=== PATIENT | female | born 1955 | race Caucasian/White ===

== ENCOUNTER 2019-09-18 08:15 | Outpatient (CLI) | payer MEDICARE, OTHER, SELFPAY ==
--- NOTE | 2019-09-18 08:28 | MR_ITS ---
WS: [id number] MRI RIGHT KNEE NONCONTRAST TECHNIQUE: Axial PD, coronal PD fat sat, coronal PD, sagittal PD, and sagittal PD fat-sat images obta ined. CLINICAL INFORMATION: MEDIAL MENISCUS TEAR, RT FINDINGS: Normal anterior and posterior cruciate ligaments. Distal quadriceps and patella tendons are intact. Slightly hypertrophic patella. Small suprapatellar effusion. Moderate chondromalacia patella . Mild chronic thinning of the medial and lateral meniscus. No acute appearing medial meniscal tears. Complex tear involving the posterior horn lateral meniscus extending to the articular surface. Hypertrophic patella. Moderate chondromalacia patella. Tiny intrasubstance tear involving the distal ACL insertion. Medial and lateral collateral ligaments are intact. Moderate chondromalacia involving the medial late ral joint compartments. MR/MR knee RT wo con* [id number] IMPRESSION: 1. Anterior and posterior cruciate ligaments are intact. Tiny intrasubstance t ear involving the distal ACL insertion. 2. Complex tear involving the posterior horn lateral meniscus extending to the articular surface. Normal medial meniscus. 3. Moderate chondromalacia involving the medial and lateral joint compartments . 4. Moderate chondromalacia patella. Hypertrophic patella.
== END 2019-09-18 08:16 | disposition home or self-care (01) ==
LOC: RADWPI 08:27
PROVIDERS: Family Provider Family Medicine; PCP Family Medicine; Visit Provider Family Medicine
DX: S83.241A Other tear of medial meniscus, current injury, right knee, initial encounter (principal); X58.XXXA Exposure to other specified factors, initial encounter; M22.41 Chondromalacia patellae, right knee
CPT/HCPCS: 73721

== ENCOUNTER → 2019-10-02 09:21 | Outpatient (BNVA) | payer MEDICARE, OTHER, SELFPAY | PROVIDERS: Family Provider Family Medicine; PCP Family Medicine; Referring Provider Family Medicine; Visit Provider Orthopaedic Surgery | DX: M25.561 Pain in right knee (principal); M17.11 Unilateral primary osteoarthritis, right knee | CPT/HCPCS: 73560; 73565 ==

== ENCOUNTER 2019-10-17 11:30 | Outpatient (CLI) | payer MEDICARE, OTHER, SELFPAY ==
--- NOTE | 2019-10-17 11:37 | USCV_ITS ---
Candace Hurst Age: 64 Gender: F : 1955 Exam Date: 10/17/2019 11:32 Ordering Phys: Eduard Hogan MD ([email or web address]) Technologist: Esthela Bernal Exam Location: [facility] – [place], [place] Indication: PALP, NEAR SYNCOPE BP: / HR: 84 Rhythm: Sinus Technical Quality: Adequate MEASUREMENTS (Male / Female) Normal Values 2D ECHO LV Diastolic Diameter PLAX 4.5 cm 4.2 - 5.9 / 3.9 - 5.3 cm LV Systolic Diameter PLAX 2.8 cm LV Chamber Size 5.0 cm IVS Diastolic Thickness 1.1 cm 0.6 - 1.0 / 0.6 - 0.9 cm IVS Systolic Thickness 1.8 cm LVPW Diastolic Thickness 1.0 cm 0.6 - 1.0 / 0.6 - 0.9 cm LVPW Systolic Thickness 1.3 cm RV Chamber Size 3.2 cm LVOT Diameter 2.0 cm LV Ejection Fraction 2D Teich 69.5 % LV Ejection Fraction MOD 2C 43.7 % LV Ejection Fraction 2C AL 40.0 % LA Diameter 4.0 cm LA Width 2.8 cm LA Height 4.1 cm RA Width 2.7 cm RA Height 3.7 cm Aorta at Sinotubular Diameter 2.8 cm M-MODE LV Diastolic Diameter MM 4.3 cm 4.2 - 5.9 / 3.9 - 5.3 cm LV Systolic Diameter MM 3.1 cm LV Ejection Fraction MM Teich 55.4 % IVS Diastolic Thickness MM 1.0 cm 0.6 - 1.0 / 0.6 - 0.9 cm IVS Systolic Thickness MM 0.9 cm LVPW Diastolic Thickness MM 0.9 cm 0.6 - 1.0 / 0.6 - 0.9 cm LVPW Systolic Thickness MM 1.4 cm RV Diastolic Diameter MM 1.6 cm Aortic Annulus Diameter 3.0 cm LA Ao Ratio MM 1.3 MV E Point Septal Separation 0.6 cm DOPPLER AV Peak Velocity 118.0 cm/s LVOT Peak Velocity 76.0 cm/s AV Area Cont Eq vti 2.1 cm squared AV Area Cont Eq pk 2.1 cm squared MV Area PHT 5.5 cm squared Mitral E to A Ratio 2.1 MV E' Velocity 7.0 cm/s Mitral E to MV E' Ratio 12.0 Mitral E to LV E' Lateral Ratio 14.1 Mitral E to LV E' Septal Ratio 10.5 TR Peak Velocity 188.6 cm/s TR Peak Gradient 14.2 mmHg TR Mean Velocity 122.3 cm/s TR Mean Gradient 6.9 mmHg TR Velocity Time Integral 41.8 cm PV Peak Velocity 62.0 cm/s RV Acceleration Time 0.1 s RV Ejection Time 0.3 s RV AcT/ET 0.2 FINDINGS Left Ventricle Normal left ventricular size, systolic function and wall thickness, with no regional wall motion abnormalities. Normal left ventricular wall thickness. Normal diastolic filling pattern. Left ventricular ejection fraction is estimated at 60 %. Right Ventricle The right ventricle is normal in size and function. Right Atrium The right atrium is normal in size. Left Atrium The left atrium is normal in size. Mitral Valve Structurally normal mitral valve without significant stenosis or prolapse. There is no mitral regurgitation. Aortic Valve Structurally normal aortic valve without significant sclerosis or stenosis. There is no aortic regurgitation. Tricuspid Valve Structurally normal tricuspid valve without significant stenosis or regurgitation. Pulmonary artery systolic pressure is normal. Pulmonic Valve Structurally normal pulmonic valve without significant stenosis. There is no pulmonic regurgitation. Pericardium Normal pericardium without effusion. Aorta Normal ascending aorta dimension. CONCLUSIONS Normal transthoracic echocardiogram. There are no prior echocardiogram studies to compare. Dr. Eduard Hogan MD (Electronically Signed) Final Date: 17 October 2019 17:06 S
== END 2019-10-17 11:31 | disposition home or self-care (01) ==
LOC: RAD 11:36
PROVIDERS: Family Provider Family Medicine; PCP Family Medicine; Visit Provider Internal Medicine Cardiovascular Disease
DX: R00.2 Palpitations (principal); R55 Syncope and collapse
CPT/HCPCS: 93306

== ENCOUNTER 2020-05-02 12:02 | Outpatient (CLI) | payer MEDICARE, OTHER, SELFPAY ==
--- NOTE | 2020-05-02 12:13 | XR_ITS ---
WS: [id number] Cervical spine, 3 views, 05/02/2020 Clinical Data: BACK PAIN Comparison: None. Findings: No compression fractures are seen. There is disc space narrowing at C6-C7. There is anterio r longitudinal ligament calcification at C5-C6. There is a 0.2 cm subluxation of C4 on C5. Bilateral facet joint arthritis is present from C3 through C7. There is no prevertebral soft tissue swelling. T he odontoid is unremarkable. The soft tissues of the neck and the lung apices are normal. XR/XR cervical spine 3V* [id number] Impression: 1. Disc narrowing at C6-C7. 2. 0.2 cm subluxation of C4 on C5. 3. Bilateral facet joint arthritis. 4. Minimal calcification of the anterior longitudinal ligament at C5-C6.
--- NOTE | 2020-05-02 12:14 | XR_ITS ---
WS: [id number] Thoracic spine, 3 views, 05/02/2020 Clinical Data: BACK PAIN Comparison: None. Findings: No compression fractures are seen. The disc heights are normal. The paravertebral regions are normal. XR/XR thoracic spine 3V* [id number] Impression: Negative thoracic spine.
== END 2020-05-02 12:03 | disposition home or self-care (01) ==
PROVIDERS: PCP Family Medicine; Visit Provider Family Medicine
DX: M54.6 Pain in thoracic spine; S13.150A Subluxation of C4/C5 cervical vertebrae, initial encounter; X58.XXXA Exposure to other specified factors, initial encounter; M13.88 Other specified arthritis, other site
CPT/HCPCS: 72040; 72072

== ENCOUNTER 2020-05-08 11:03 | Outpatient (RCR) | payer MEDICARE, OTHER, SELFPAY | END 2020-05-11 23:59 | disposition home or self-care (01) | LOC: SPT 11:03 | PROVIDERS: PCP Family Medicine; Referring Provider Family Medicine; Visit Provider Family Medicine | DX: M54.6 Pain in thoracic spine (principal) | CPT/HCPCS: 97161 ==

== ENCOUNTER 2020-05-12 06:00 | Outpatient (RCR) | payer MEDICARE, OTHER, SELFPAY | END 2020-06-08 23:59 | disposition home or self-care (01) | LOC: SPT 06:00 | PROVIDERS: PCP Family Medicine; Referring Provider Family Medicine; Visit Provider Family Medicine | DX: M54.9 Dorsalgia, unspecified (principal); M54.6 Pain in thoracic spine | CPT/HCPCS: 97110; 97140 ==

== ENCOUNTER 2020-06-09 06:00 | Outpatient (RCR) | payer MEDICARE, OTHER, SELFPAY | END 2020-07-09 23:59 | disposition home or self-care (01) | LOC: SPT 06:00 | PROVIDERS: PCP Family Medicine; Referring Provider Family Medicine; Visit Provider Family Medicine | DX: M40.04 Postural kyphosis, thoracic region (principal); M48.02 Spinal stenosis, cervical region | CPT/HCPCS: 97110 ==

== ENCOUNTER 2021-11-13 10:55 | Outpatient (CLI) | payer MEDICARE, OTHER, SELFPAY ==
--- NOTE | 2021-11-13 11:01 | XR_ITS ---
WS: [id number] Cervical spine, 4 views, 11/13/2021 Clinical Data: neck pain, cervical Comparison: Cervical spine, 05/02/2020. Findings: No compression fractures are seen. Degenerative disc narrowing at C6-C7. There is 0.2 cm de la vega bluxation of C4 on C5. There is anterior longitudinal ligament calcification at C5-C6. There is bilat eral facet joint arthritis from C3 through C7. There is no prevertebral soft tissue swelling. The odo ntoid is unremarkable. The soft tissues of the neck and the lung apices are normal. XR/XR cervical spine 3V* [id number] Impression: 1. Degenerative disc narrowing at C6-C7. 2. 0.2 cm subluxation of C4 on C5. 3. Bilateral facet joint arthritis C3-C7. 4. Minimal calcification anterior longitudinal ligament C5-C6.
== END 2021-11-13 10:56 | disposition home or self-care (01) ==
LOC: RAD 10:58
PROVIDERS: PCP Family Medicine; Visit Provider Family Medicine
DX: S13.150A Subluxation of C4/C5 cervical vertebrae, initial encounter (principal); M47.812 Spondylosis without myelopathy or radiculopathy, cervical region; X58.XXXA Exposure to other specified factors, initial encounter
CPT/HCPCS: 72040

== ENCOUNTER 2021-11-17 08:56 | Outpatient (CLI) | payer MEDICARE, OTHER, SELFPAY ==
--- NOTE | 2021-11-17 09:30 | MR_ITS ---
WS: [id number] MRI CERVICAL SPINE NONCONTRAST TECHNIQUE: Sagittal T1, T2 and STIR imaging. Axial T2, gradient, and fiesta imaging. CLINICAL INFORMATION: posterior neck pain radiating down arm COMPARISON: None. FINDINGS: Straightening of the normal cervical lordosis. Cord signal is normal. Mild disc bulging C5-C6 and C6- C7. Slight anterolisthesis C4 on C5. C2-C3: Normal. C3-C4: Mild disc osteophytic ridging. Mild RIGHT greater than LEFT bony foraminal narrowing. Moderate RIGHT facet arthropathy. Spinal canal is patent. C4-C5: Slight anterolisthesis. Advanced RIGHT facet arthropathy. Moderate RIGHT and mild LEFT bony fo raminal narrowing. C5-C6: Disc osteophytic ridging. Advanced LEFT facet arthropathy. Moderate to severe LEFT and no sign ificant RIGHT foraminal narrowing. Spinal canal is patent. C6-C7: Disc osteophyte complex with endplate ridging. Moderate central canal stenosis. Moderate bilat eral bony foraminal narrowing. Mild facet arthropathy. C7-T1: Normal. Edema in the articulating LEFT C5-C6 facets with a small amount of periarticular edema compatible wi th synovitis. No drainable fluid collections. MR/MR cervical spin wo con* [id number] IMPRESSION: 1. Straightening of the normal cervical lordosis. Cord signal is normal. Sligh t anterolisthesis C4 on C5. 2. Moderate central canal stenosis C6-C7 with slight contact of the cervical c ord. 3. Moderate to severe bony foraminal narrowing RIGHT C4-C5, LEFT C5-C6, and mo derate bilateral C6-C7 LEFT greater than RIGHT. 4. Advanced facet arthropathy RIGHT C4-C5 and LEFT C5-C6. Moderate RIGHT facet arthropathy C3-C4. 5. Edema in the articulating LEFT C5-C6 facets with a small amount of periart icular edema compatible with synovitis. No drainable fluid collections.
== END 2021-11-17 08:57 | disposition home or self-care (01) ==
LOC: RAD 08:57
PROVIDERS: PCP Family Medicine; Visit Provider Clinical Nurse Specialist Adult Health
DX: M54.12 Radiculopathy, cervical region (principal); M48.02 Spinal stenosis, cervical region; M47.812 Spondylosis without myelopathy or radiculopathy, cervical region
CPT/HCPCS: 72141

== ENCOUNTER → 2021-12-01 09:16 | Outpatient (BNVA) | payer MEDICARE, OTHER, SELFPAY | PROVIDERS: PCP Family Medicine; Visit Provider Orthopaedic Surgery | DX: M47.22 Other spondylosis with radiculopathy, cervical region (principal) | CPT/HCPCS: 99204 ==

== ENCOUNTER → 2022-01-07 13:16 | Outpatient (BNVA) | payer MEDICARE, OTHER, SELFPAY | PROVIDERS: PCP Family Medicine; Visit Provider Orthopaedic Surgery | DX: M47.22 Other spondylosis with radiculopathy, cervical region (principal) | CPT/HCPCS: 72040; 99214 ==

== ENCOUNTER → 2022-02-02 13:14 | Outpatient (BNVA) | payer MEDICARE, OTHER, SELFPAY | PROVIDERS: PCP Family Medicine; Visit Provider Family Medicine | DX: Z00.00 Encounter for general adult medical examination without abnormal findings (principal); M47.22 Other spondylosis with radiculopathy, cervical region; I49.1 Atrial premature depolarization; Z13.6 Encounter for screening for cardiovascular disorders | CPT/HCPCS: 80053; 80061; 85025 ==

== ENCOUNTER 2022-02-22 12:09 | Inpatient (IN) | payer MEDICARE, OTHER, SELFPAY ==
[2022-02-16 09:07] VITALS: BMI 25.9
--- NOTE | 2022-02-16 09:49 | P.ANESASSM_ITS ---
Pre-Anesthetic Assessment Height/Weight: Height 1.65 m Weight 70.76 kg Preop Diagnosis: Cervical spondylosis with radiculopathy Operation Date: 02/22/22 07:00 Proposed Procedures p Anterior Cervical Discectomy & Fusion(Not Applicable) - Benjamín Meadows DO Familial anesthetic complications: none Was Beta Fernando taken within 24 hours: N/A Was Clonidine taken within 24 hours: N/A Social Tobacco (vapes) and No alcohol Exam alert, oriented x 3, clear to auscultation bilaterally and regular rate & rhythm Airway Submandibular: within normal limits Cervical ROM: within normal limits Mallampati: Class II Dentition: full CV/HEM Arrythmia (PACs) Musc/skel Osteoarthritis/DJD Anesthetic Plan ASA status: 2 Anesthesia: General Medications/Allergies Home Medications Medication Instructions Recorded Confirmed Last Taken Type cervical collar #1 ea 01/07/22 02/02/22 Unknown Rx triamcinolone acetonide 0.1 % 1 applic topical BID dermatitis 02/02/22 02/16/22 Unknown Rx topical ointment #80 grams Allergies Allergy/AdvReac Type Severity Reaction Status Date / Time No Known Allergies Allergy Verified 02/16/22 09:06 [facility] Anesthesia Medical History Cervical osteoarthritis Lightheadedness PAC (premature atrial contraction) Palpitations Surgical History S/P hysterectomy S/P tonsillectomy Family History Father CAD (coronary artery disease) Cancer Mother CAD (coronary artery disease) Denies family history of Diabetes Clotting disorder Dementia Hyperlipidemia Psychiatric illness Chronic kidney disease (CKD) Suicide Anesthesia complication Bleeding disorder Family history of premature coronary artery disease Lung disease Hypertension Stroke Social History Smoking and tobacco status: current some day smoker Alcohol intake: current Data Anesthesia Cardiac Studies: Echocardiogram Ultrasound 10/17/19 Holter Monitor 05/11/19
[2022-02-22] VITALS (14 sets, daily range): BP systolic 136–171; BP diastolic 60–89; PULSE 78–98; RESP 16–18; TEMP 36.1–36.9; O2SAT 92–100
--- NOTE | 2022-02-22 | XR_ITS ---
WS: [id number] Exam: XR cervical spine 3V* [id number] Date/Time of Exam: 02/22/2022 12:00 AM Reason For Exam: ACDF C4-5, C5-6, C6-7 Intraoperative C-arm images of the cervical spine in the AP and lateral projections are submitted for evaluation. There is interbody fusion with anterior plate and screw fixation from C4 to C7. The fusion is in good alignment. There are disc spacers at C4-5, C5-6 and C6-7. An endotracheal tube is noted in the airwa y. XR/XR cervical spine 3V* [id number] IMPRESSION: 1. Anterior fusion from C4 to C7 in satisfactory position.
--- NOTE | 2022-02-22 | SCC_ITS ---
Procedure done: 1. Anterior diskectomy C4/5 2. Anterior diskectomy C5/6 3. Anterior discectomy C6/7 4. Insertion of cage C4/5 5. Insertion of cage C5/6 6. Insertion of Cage C6/7 7. Instrumentation with anterior plate from C4-C7 8. Use of allograft 10 seconds of fluoroscopic guidance, for a cumulative dose of 0.6 mGy, was provided to Dr. Meadows by the radiology department. C-arm images of the cervical spine were saved for the patient's permanent record. SHANNAN
--- NOTE | 2022-02-22 08:02 | P.ANESUD_ITS ---
Pre-Anesthetic Update Pre-Anesthetic Assessment: Date of Surgery/Procedure: 02/22/22 Preop Lakisha gnosis: Cervical spondylosis with radiculopathy Proposed Procedure: Operation Date: 02/22/22 08:40 Proposed Procedures p Anterior Cervical Discectomy & Fusion(Not Applicable) - Benjamín Meadows, DO Any changes to Pre-Anesthetic Assessment?: No Last Intake: Intake Last Liquid Date 02/21/22 Last Liquid Time 20:00 Last Solid Date 02/21/22 Last Solid Time 20:00 Vitals: Temperature 97.6 F 02/22/22 07:28 Temperature Source Temporal Artery S can 02/22/22 07:28 Pulse Rate 80 02/22/22 07:28 Pulse Rhythm 02/22/22 07:42 Pulse Strength 3+ Normal 02/22/22 07:42 Respiratory Rate 16 02/22/22 07:28 Blood Pressure 150/86 02/22/22 07:28 Blood Pressure Mary n 107 02/22/22 07:28 Pulse Oximetry 97 02/22/22 07:28 Oxygen Delivery Me thod 02/22/22 07:42 Exam: Pre-Anes Outpt Exam: alert, oriented x 3, clear to auscultation bilaterally and regular rate & rhythm Cardiac Studies: Echocardiogram Ultrasound 10/17/19 Holter Monitor 05/11/19
[2022-02-22] MEDS: sodium chloride 0.9% 1,000 ML 30 ML IV (08:20)
[2022-02-22] MEDS: scopolamine 1.5 Patch 1 PATCH TRANSDERMA (08:21)
[2022-02-22] MEDS: diphenhydrAMINE 50 mg/mL SDV 1mL 12.5 MG IVP (08:21)
--- NOTE | 2022-02-22 08:24 | PM.HP ---
Providers/Chief Complaint Primary Care Provider: Oskar Martinez DO Chief Complaint: ACDF C4/5 5/6 6/7 [id number]/ History of Present Illness Candace Hurst is a 66 year old female She rates her pain a 6/10 today. With pain between her shoulders and travels into the left arm. She declined referral to pain management for injections. 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 Her pain is alleviated by rest. She has been using 800mg ibuprofen without relief.? She has also tried prednisone without relief. Review of Systems General: Reports: 10 or more systems reviewed and unremarkable except in HPI and below Const: Denies: fever(s) or chills Eyes: Denies: eye discharge ENMT: Denies: hoarseness Card: Denies: chest pain or orthopnea Resp: Denies: productive cough GI: Denies: nausea or vomiting : Denies: flank pain Musc: Reports: neck pain, extremity pain and limited range of motion Skin/Breast: Denies: changes in skin color or dry skin Neuro: Reports: numbness in extremities and lack of coordination; Denies: weakness in extremities Psych: Denies: anxiety Stephane/Lymph: Denies: easy bruising or easy bleeding All/Imm: Denies: urticaria Medications/Allergies Home Medications Medication Instructions Recorded Confirmed Last Taken Type cervical collar #1 ea 01/07/22 02/02/22 Unknown Rx triamcinolone acetonide 0.1 % 1 applic topical BID dermatitis 02/02/22 02/22/22 12/23/21 Rx topical ointment #80 grams Intraoperative Neuromonitoring #1 ea 02/17/22 Unknown Rx Bone Growth Stimulator [id number] #1 ea 02/19/22 Unknown Rx Allergies Allergy/AdvReac Type Severity Reaction Status Date / Time No Known Allergies Allergy Verified 02/16/22 09:06 PFSH Acute PFSH: Medical History Cervical osteoarthritis Lightheadedness PAC (premature atrial contraction) Palpitations Surgical History S/P hysterectomy S/P tonsillectomy Family History Father CAD (coronary artery disease) Cancer Mother CAD (coronary artery disease) Denies family history of Diabetes Clotting disorder Dementia Hyperlipidemia Psychiatric illness Chronic kidney disease (CKD) Suicide Anesthesia complication Bleeding disorder Family history of premature coronary artery disease Lung disease Hypertension Stroke Social History Smoking and tobacco status: current some day smoker Alcohol intake: current Vitals/I&O/Wt Last Vital Signs Temp 97.6 F 02/22/22 07:28 Pulse 80 02/22/22 07:28 Resp 16 02/22/22 07:28 BP 150/86 02/22/22 07:28 Pulse Ox 97 02/22/22 07:28 O2 Del Method 02/22/22 07:42 Physical Exam Narrative: GENERAL: Patient in no acute distress. CARDIAC: Regular rate and rhythm. CHEST: Normal inspiratory effort, normal respiratory rate. ABDOMEN: Soft and nontender. SKIN: Clear, warm and intact. NEURO?PSYCH: The patient is alert and oriented to person, place and time. Sensorv /SILT Motor StrengthShoulder abduction C5 5/5Wrist extension C6 5/5Elbow extension C7 5/5Hand Financial Planner C8 5/5Finger abduction T15/5 Radial/ Ulnar/ Median n intact LowerSensory (SILT)Motor StrengthHin flexion L2/3Ant/inner thigh 5/5Hip adduction L2/3 5/5Knee extension L4 Lat thigh, 5/5Toe dorsiflexion L5 5/5Ankle dorsiflexion L5/ L93Ynevfrk flexion S1 5/5 DTRBleeps 2+Triceps 2+Brachioradialis 2+Patellar 2+Achilles 2+ MUSCULOSKELETAL: [] UPPEREXTREMITIES: The patient had full active ROM in fingers, wrist, elbow, and shoulder. The patient demonstrated ability to fully flex/extend/abduct/adduct fingers, make ok sign, cross 2nd/3rd digits, extend 1st digit fully.. Radial pulse 2+, CR<2 seconds. LOWER EXTREMITIES: Pt has full, active ROM of toes, ankle, knee, and hip. Dorsalis pedis/posterior tibialis pulses 2+, CR<2 seconds. SPINE: Skin warm, dry, intact. A&P Assessment and plan (1) Cervical spondylosis with radiculopathy: C4-7 ACDF Attestations Medical Necessity Statement*: failed conservative tx Coding Level of Care Code Acute Senior Games Technician for Chg Fwd Diagnoses Cervical spondylosis with radiculopathy M47.22
[2022-02-22] MEDS: fentaNYL 50 mcg/mL INJ 2mL IVP (10:58)
--- NOTE | 2022-02-22 11:06 | P.OP_ITS ---
Operative Report Date of procedure: February 22, 2022 Pre-op diagnosis: Preop Diagnosis Cervical spondylosis with radiculopathy Post-op diagnosis: same Procedure done: 1. Anterior diskectomy C4/5 2. Anterior diskectomy C5/6 3. Anterior discectomy C6/7 4. Insertion of cage C4/5 5. Insertion of cage C5/6 6. Insertion of Cage C6/7 7. Instrumentation with anterior plate from C4-C7 8. Use of allograft Surgeon: Benjamín Meadows American Indian Studies Professor: Jayden Mesa American Indian Studies Professor: The habilitation assistant, Jayden Mesa, PAC was needed for his expertise under the microscope. He was important and necessary throughout the procedure to complete in a safe and timely manner. He assisted with patient positioning prepping and draping tissue retraction suctioning of the operative field protection of the dural sac and tissue closure Estimated blood loss (mL): 10 Procedure: 1. Anterior diskectomy C4/5 2. Anterior diskectomy C5/6 3. Anterior discectomy C6/7 4. Insertion of cage C4/5 5. Insertion of cage C5/6 6. Insertion of Cage C6/7 7. Instrumentation with anterior plate from C4-C7 8. Use of allograft The patient was taken to the operating room, where he underwent general endotracheal anesthesia without complications. He was then positioned supine on the operating table, and all areas of impingement were well padded. The arms were carefully padded and tucked at his sides. A roll was placed between the shoulder blades.. An x-ray was done to determine the appropriate level for the skin incision. The entire neck was then sterilely prepped and draped in the usual fashion. Neuromonitoring was attached prior to prepping. A transverse skin incision was made and carried down to the platysma muscle. This was then split in line with its fibers. Blunt dissection was carried down medial to the carotid sheath and lateral to the trachea and esophagus until the anterior cervical spine was visualized. A needle was placed into a disc and an x-ray was done to determine its location. The longus colli muscles were then elevated bilaterally with the electrocautery unit. Self-retaining retractors were placed deep to the longus colli muscle. Attention was brought to the C4/5 level that was confirmed on x-ray. A caspar pin was placed into the C4 vertebrae and the C5 vertebrae. The disk space was then distracted. The microscope was then brought in. A radical anterior discectomies were performed at C4/5. This included complete removal of the anterior annulus, nucleus, and posterior annulus. The posterior longitudinal ligament was removed as were the posterior osteophytes. Foraminotomies were then accomplished bilaterally. This was done using a high speed bonny, kerrison rongeurs and curretes Once all of this was accomplished, the curved currette was used to check for any residual compression. The central canal was wide open as were the foramen. A high-speed bur was used to remove the cartilaginous endplates above and below the interspace. Bleeding cancellous bone was exposed. The disc space were measured and appropriate size cage were placed sterilely onto the field. Allograft graft was packed into the cages. The cage was then placed and there was good juxtaposition against the bleeding decorticated surfaces and good distraction of each interspace. Attention was brought to the next interspace. The Bladen pins were removed. Bone wax was used to prevent any bleeding from occurring at the pin sites. Attention was brought to the C5/6 level that was confirmed on x-ray. A caspar pin was placed into the C5 vertebrae and the C6 vertebrae. The disk space was then distracted. The microscope was then brought in. A radical anterior discectomies were performed at C5/6. This included complete removal of the anterior annulus, nucleus, and posterior annulus. The posterior longitudinal ligament was removed as were the posterior osteophytes. Foraminotomies were then accomplished bilaterally. This was done using a high speed bonny, kerrison rongeurs and curretes Once all of this was accomplished, the curved currette was used to check for any residual compression. The central canal was wide open as were the foramen. A high-speed bur was used to remove the cartilaginous endplates above and below the interspace. Bleeding cancellous bone was exposed. The disc space were measured and appropriate size cage were placed sterilely onto the field. Allograft graft was packed into the cages. The cage was then placed and there was good juxtaposition against the bleeding decorticated surfaces and good distraction of each interspace. Attention was brought to the next interspace. The Bladen pins were removed. Bone wax was used to prevent any bleeding from occurring at the pin sites. Attention was brought to the C6/7 level that was confirmed on x-ray. A caspar pin was placed into the C6 vertebrae and the C7 vertebrae. The disk space was then distracted. The microscope was then brought in. A radical anterior discectomies were performed at C6/7. This included complete removal of the anterior annulus, nucleus, and posterior annulus. The posterior longitudinal ligament was removed as were the posterior osteophytes. Foraminotomies were then accomplished bilaterally. This was done using a high speed bonny, kerrison rongeurs and curretes Once all of this was accomplished, the curved currette was used to check for any residual compression. The central canal was wide open as were the foramen. A high-speed bur was used to remove the cartilaginous endplates above and below the interspace. Bleeding cancellous bone was exposed. The disc space were measured and appropriate size cage were placed sterilely onto the field. Allograft graft was packed into the cages. The cage was then placed and there was good juxtaposition against the bleeding decorticated surfaces and good distraction of each interspace. Attention was brought to the next interspace. The Bladen pins were removed. Bone wax was used to prevent any bleeding from occurring at the pin sites. The appropriate size anterior cervical locking plate was chosen and bent into gentle lordosis. Two screws were then placed into each of the vertebral bodies at []. There was excellent purchase. A final x-ray was done confirming good position of the hardware and Cages. The locking screws were then applied, also with excellent purchase. Following a final copious irrigation, there was good hemostasis and no dural leaks. The carotid pulse was strong. The wounds were then closed in layers using 2-0 Vicryl suture for the platysma muscle, 2-0 Vicryl suture for the subcutaneous tissue, and 4-0 monocryl suture in a subcuticular skin closure. Glue was placed followed by application of a sterile dressing. The drain was hooked to bulb suction. A soft collar was applied. The patient was then carefully returned to the supine position on his hospital bed where he was reversed and extubated and taken to the recovery room having tolerated the procedure well.
--- NOTE | 2022-02-22 12:02 | SUR.EXTENDED ---
11:50 PATIENT TRANSFERED TO [facility]. A+O X 3. ROM AND SENSATION IN ALL EXTREMITIES. NO DYSPNEA NOTED. BEDSIDE REPORT GIVEN.
[2022-02-22] MEDS: HYDROcodone-acetaminophen 5-325 mg Tablet PO (12:41)
[2022-02-22] MEDS: lactated ringers 1,000 ML 90 ML IV ×2 (12:42→22:59)
[2022-02-22] MEDS: ketorolac 30 mg/mL INJ IVP (13:10)
--- NOTE | 2022-02-22 13:21 | ANE.PACU2 ---
Inpatient post-anesthesia follow up: Airway intact: Yes Vital signs: Temperature 97.8 F Pulse Rate 90 Respiratory Rate 18 Blood Pressure 171/60 Pulse Oximetry 94 Oxygen Delivery Me thod Room Air Oxygen Flow Rate 8 Fraction of Inspir ed Oxygen Hydration adequate: Yes Nausea and vomiting: No Pain level: 1 Mental status: Baseline
[2022-02-22] MEDS: ceFAZolin 2,000 MG in sodium chloride 0.9% (plus) 50 ML 100 MG IV ×2 (15:25→22:58)
[2022-02-22] MEDS: docusate sodium 100 mg Capsule PO (17:28)
[2022-02-23] VITALS: BP 152/67; PULSE 76; RESP 17; TEMP 37; O2SAT 94
[2022-02-23] MEDS: ondansetron 2 mg/ML SDV 2 mL 4 MG IVP (02:33)
[2022-02-23 04:00] VITALS: BP 126/63; PULSE 89; RESP 16; TEMP 37.2; O2SAT 95
[2022-02-23] MEDS: ceFAZolin 2,000 MG in sodium chloride 0.9% (plus) 50 ML 100 MG IV (06:24)
--- NOTE | 2022-02-23 06:59 | PM.PN ---
Subjective Subjective: POD 1 Patient resting comfortably. Reports sinus drainage this morning but denies any neck pain, shortness of breath, headaches. Denies any arm pain. Vitals/I&O/Wt Last Vital Signs Temp 99.0 F 02/23/22 04:00 Pulse 89 02/23/22 04:00 Resp 16 02/23/22 04:00 BP 126/63 02/23/22 04:00 Pulse Ox 95 02/23/22 04:00 O2 Del Method 02/23/22 04:00 O2 Flow Rate 8 02/22/22 10:40 02/22/22 02/22/22 02/23/22 14:59 22:59 06:59 Intake Total 1700 / 1700 1335.5 / 3035.5 50 / 3085.5 Output Total 50 / 50 200 / 250 Balance 1650 / 1650 1135.5 / 2785.5 50 / 2835.5 Physical Exam Narrative: Patient is alert and oriented x3 with a good general appearance normal mood and affect. Nontender with palpation about the incisional site. Incision appears to be clean and dry without signs of erythema or drainage. No signs of infection. Good motor strength throughout both upper extremities. Appears to fire in all motor groups with 5/5 strength. Hands are warm good cap refill in all digits. Normal sensation to light touch in all dermatomal areas. Urinary Catheter Management: Baker: Cath Placed During This Visit: yes Urinary Catheter Date of Insertion: 02/22/22 Urinary Catheter Time of Insertion: 09:00 A&P Assessment and plan (1) Status post cervical spinal fusion: Discussed with patient to be cautious with overhead lifting nothing more than 10 pounds. She will continue the [place] J collar we will see her back in the office in 1 week's time will discharge home this morning. Encouraged incentive spirometry for pulmonary toilet. We will place her on tramadol 50 mg 1 tablet every 4-6 hours as needed pain. She will call if she is having problems. 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
[2022-02-23 07:44] VITALS: BP 149/75; PULSE 84; RESP 18; TEMP 37.1; O2SAT 90
[2022-02-23] MEDS: docusate sodium 100 mg Capsule PO (09:36)
[2022-02-23] MEDS: HYDROcodone-acetaminophen 5-325 mg Tablet PO (09:36)
--- NOTE | 2022-02-23 12:26 | PC.CHAP ---
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 visit [] Patient/Family/Request visit [] Outpatient visit [] Follow-up visit [] Physician referral [] Code/Alert [x] Routine visit [] Staff referral [] Actively dying [] Patient sleeping [x] Family support [] [] Out of room [] Palliative care [] [] Receiving care in room [] Pre-surgical visit [] Trauma [] Long length of stay [] ICU visit [] Other: Relational/Emotional Strength [] Patient feels connected with others/family/visitors/staff [] Distress [] Loneliness/isolation [] Abandonment Spirituality of Patient [x] Person of Phuong [] Attends Religious of their [place] [x] Believes in Prayer [] Reads Bible or Orthodox materials [] There are Spiritual issues to be addressed Obstetrician Interventions [x] Prayer [] Active listening [] Non-anxious presence [] Spiritual/emotional support [] Crisis/trauma care [] Spiritual counseling [] Bereavement support [] Provided bereavement packet [] Provided Bible/devotional materials [] Provided toy/stuffed animal, coloring book to patient or family member [] Provided Communion [] Anointing/[place] [] Salvation [x] Completed spiritual assessment [] Other: Impact on Illness or Injury [] Angry [] Fearful [] Anxious [] Often cries [] Exhaustion [] Unable to work [] Unable to attend jew [] Unable to walk/stand [] Unable to read [] Unable to drive [] Unable to eat/drink [] Unable to sleep [] Unable to be with family [] Patient intubated [] Other: Summary Time spent with patient 15 min
[2022-02-23 12:45] VITALS: BP 149/75; PULSE 84; RESP 18; TEMP 37.1; O2SAT 90
--- NOTE | 2022-02-24 14:18 | PM.DCS ---
Discharge Providers Date of Admission: 02/22/22 12:09 Date of Discharge: February 23, 2022 Attending Provider at Admission: Benjamín Meadows DO Attending Provider at Discharge: Benjamín Meadows DO Primary Care Provider: Oskar Martinez DO Diagnoses at Discharge Discharge Diagnosis (1) Status post cervical spinal fusion: Status: Acute Reason for Visit Reason for Visit: ACDF C4/5 5/6 6/7 [id number]/ Hospital Course Hospital Course uneventful Physical Exam Urinary Catheter Management: Baker: Cath Placed During This Visit: yes Urinary Catheter Date of Insertion: 02/22/22 Urinary Catheter Time of Insertion: 09:00 Discharge Data Studies Completed and Pending Completed Studies During Hospitalization Category Date Time Status XR cervical spine 3V* [id number] Routine Exams 02/22/22 Completed Radiology Impressions Cervical Spine X-Ray 02/22/22 00:00 IMPRESSION: 1. Anterior fusion from C4 to C7 in satisfactory position. Laboratory Results Blood Type A Positive 02/22/22 07:55 Rho(D) Type Positive 02/22/22 07:55 Antibody Screen Negative 02/22/22 07:55 Vitals Last Vital Signs Temp 98.7 F 02/23/22 12:45 Pulse 84 02/23/22 12:45 Resp 18 02/23/22 12:45 BP 149/75 02/23/22 12:45 Pulse Ox 90 02/23/22 12:45 O2 Del Method 02/23/22 07:44 O2 Flow Rate 8 02/22/22 10:40 Discharge Plan Discharge Patient Disposition: Home Condition: Stable Prescriptions: New tramadol 50 mg tablet 50 mg PO Q4H PRN (Reason: post op pain) Qty: 30 0RF Continued (DME) cervical collar See Rx Instructions .Route .MEDSUPPLY Qty: 1 0RF Rx Instructions: As directed triamcinolone acetonide 0.1 % ointment 1 applic topical BID Qty: 80 1RF (DME) Intraoperative Neuromonitoring See Rx Instructions .Route .MEDSUPPLY Qty: 1 0RF Rx Instructions: As directed (DME) Bone Growth Stimulator [id number] See Rx Instructions .Route .MEDSUPPLY Qty: 1 0RF Rx Instructions: As directed Discharge Orders: Discharge Order (Routine); Ordered 02/23/22 Ordered By: Jayden Holtorf Referrals: Benjamín Meadows DO [Physician] - 03/02/22 3:15 pm Discharge Diet: Advance as tolerated Discharge Activity: Limit activity as instructed Patient Instructions: Tramadol (By mouth), Anterior Posterior Spinal Fusion (DC), Opioid Safety Activity Restrictions/Additional Instructions: Thank you for choosing [facility] for your care! The following is a list of instructions, from your provider, to follow upon your discharge to ensure you have the optimal recovery from your recent injury or surgery. Anterior Cervical Discectomy and Fusion: What to Expect at Home Your Recovery Follow-up care is a guardado part of your treatment and safety. Be sure to make and go to all appointments, and call your doctor if you are having problems. If you do not already have a follow-up appointment made, call office in the next 1-3 days to make follow up appointment for 1 weeks at [phone]. It is also a good idea to know your test results and keep a list of the medicines you take. You can expect your neck to feel stiff or sore after surgery. This should improve in the weeks after surgery. But it may take 4 to 6 months for you to get better completely. You may have trouble sitting or standing in one position for very long and may need pain medicine in the weeks after your surgery. It may take 4 to 6 weeks to get back to your usual activities, but it may depend on what kind of surgery you had. Your throat will feel sore and it may be difficult to swallow for the first 3 days after your surgery. As long as you can get liquids down without difficulty, this should slowly improve, otherwise call our office or seek medical attention if it becomes increasingly difficult to get anything down including liquids. Avoid hot liquids for first 3-5 days. Soothing foods/liquids such as jello, pudding, and luke warm soups are recommended until swallowing improves. Staying elevated will also help, it's advised you keep propped up at while sleeping to help reduce the swelling. You may use an ice pack directly on your incision or around it on the front of your neck, using a cloth to protect your skin; and a heating pad to the back of your neck as needed. Do not use over the counter anti-inflammatory medications (Ibuprofen, Motrin, Aleve, Advil, etc) Taking these meds after having a fusion can delay fusion rates, we recommend you avoid them for the first 3 months after your surgery[address] Dr. Meadows may advise you to work with a physical therapist to strengthen the muscles around your neck and back - this will be discussed at your follow - up appointments. The pain or numbness you were having in your arms before surgery should get better or go away completely. This care sheet gives you a general idea about how long it will take for you to recover. But each person recovers at a different pace. Follow the steps below to get better as quickly as possible. How can you care for yourself at home? Activity ? Rest when you feel tired. Getting enough sleep will help you recover. ? Try to walk each day. Start by walking a little more than you did the day before. Bit by bit, increase the amount you walk. Walking boosts blood flow and helps prevent pneumonia and constipation. Walking may also decrease your muscle soreness after surgery. ? No lifting anything that is more that 5 pounds. This may include heavy grocery bags and milk containers, a heavy briefcase or backpack, cat litter or dog food bags, a child, or a vacuum telephone cleaner. ? Avoid strenuous activities, such as bicycle riding, jogging, weightlifting, or aerobic exercise, until your doctor says it is okay. ? Do not drive until your follow-up visit after your surgery, or until your doctor says it isokay. ? Avoid taking long car trips for 2 to 4 weeks after surgery. Your neck may become tired and painful from sitting too long in one position. ? You will probably need to take 4 to 6 weeks off from work. It depends on the type of work you do and how you feel. ? You may have sex as soon as you feel able, but avoid positions that put stress on your neck or cause pain. Diet ? You can eat your normal diet. If your stomach is upset, try bland, low-fat foods like plain rice, broiled chicken, toast, and yogurt ? Drink plenty of fluids. If you have kidney, heart, or liver disease and have to limit fluids, talk with your doctor before you increase the amount of fluids you drink. ? You may notice that your bowel movements are not regular right after your surgery. This is common. Try to avoid constipation and straining with bowel movements. You may want to take a fiber supplement every day. If you have not had a bowel movement after a couple of days, ask your doctor about taking a mild laxative. Medicines ? Take pain medicines exactly as directed. 1. If Dr. Meadows gave you a prescription medicine for pain, take lt as prescribed. 2. Do not take two or more pain medicines at the same time unless the doctor told you to. Many pain medicines have acetaminophen, which is Tylenol. Too much acetaminophen {Tylenol) can be harmful. 3. If you think your pain pill is making you sick to your stomach: 4. Take your pills after meals (unless your doctor has told you not to). 5. Ask your Dr. for a different pain pill. Incisioncare ? Remove your dressing 48 hours after your surgery. Ok to shower and get the incision wet. Do not overtly wash your incision. When done, pad dry, leave open to air thereafter. Avoid creams and ointments directly on your incision. ? Your sutures in the incision will dissolve and fall out on their own. ? Keep the area clean and dry. You may cover it with a gauze bandage if it weeps or rubs against clothing; if you choose to do this, change the dressing everyday. Other instructions ? Use a heating pad, hot water bottle, or gentle massage on your back to reduce stiffness. Avoid putting heat on your incision When should you call for help? ? Call 911 anytime you think you may need emergency care. For example, call if: ? You pass out (lose consciousness). ? You have sudden chest pain and shortness of breath, or you cough upblood. ? You cannot swallow. ? You have severe pain in your neck or back. ? Call your Dr. or seek immediate medical care if: ? You have pain that does not get better after you take pain pills. ? You have loose stitches, or your incision comes open. ? You have blood or fluid draining from the incision. ? You have signs of infection, such as: 1. Increased pain, swelling, warmth, or redness. 2. Red streaks leading from the site. 3. Pus draining from the site. 4. Swollen lymph nodes in your neck or armpits. 5. A fever. ? You have severe pain in your arms. ? You have new or increased weakness or numbness in your arms. ? Watch closely for any changes in your health, and be sure to contact your doctor if: ? You do not have a bowel movement after taking a laxative. Discharge Attestations Time Spent in Discharge Care*: less than 30 min Quality Metrics Clinical Quality Measures [ No reported AMI, CVA or VTE this stay] Coding Level of Care Code Acute Chg FW DC note Diagnoses Status post cervical spinal fusion Z98.1
== END 2022-02-23 11:50 | disposition home or self-care (01) | DRG 473 ==
LOC: MEDSURG 12:09
PROVIDERS: Admitting Provider Orthopaedic Surgery; PCP Family Medicine; Visit Provider Orthopaedic Surgery
PROC: 0RB30ZZ Excision of Cervical Vertebral Disc, Open Approach (ICD-10-PCS; CPT 22551; principal; 2022-02-22 08:40)
DX: M47.22 Other spondylosis with radiculopathy, cervical region (principal); F17.200 Nicotine dependence, unspecified, uncomplicated
CPT/HCPCS: 51702; 72040; 76000; 86850; 86900; 97110; C1713; C9359; J0690; J1100; J1200; J1885; J2250; J2405; J2704; J2710; J3010; J3490; J7030; J7120

== ENCOUNTER → 2022-03-02 14:48 | Outpatient (BNVA) | payer MEDICARE, OTHER, SELFPAY | PROVIDERS: PCP Family Medicine; Visit Provider Orthopaedic Surgery | DX: Z47.89 Encounter for other orthopedic aftercare (principal) | CPT/HCPCS: 99024 ==

== ENCOUNTER → 2022-03-11 13:13 | Outpatient (BNVA) | payer MEDICARE, OTHER, SELFPAY | PROVIDERS: PCP Family Medicine; Visit Provider Physician Assistant | DX: Z47.89 Encounter for other orthopedic aftercare (principal); Z98.1 Arthrodesis status | CPT/HCPCS: 72040; 99024 ==

== ENCOUNTER → 2022-04-08 14:03 | Outpatient (BNVA) | payer MEDICARE, OTHER, SELFPAY | PROVIDERS: PCP Family Medicine; Visit Provider Physician Assistant | DX: Z98.1 Arthrodesis status (principal) | CPT/HCPCS: 36415; 72040; 85025; 99024 ==

== ENCOUNTER → 2022-04-13 09:00 | Outpatient (BNVA) | payer MEDICARE, OTHER, SELFPAY | PROVIDERS: PCP Family Medicine; Visit Provider Clinical Nurse Specialist Adult Health | DX: R42 Dizziness and giddiness (principal); R00.2 Palpitations; I49.1 Atrial premature depolarization; E03.9 Hypothyroidism, unspecified; E55.9 Vitamin D deficiency, unspecified | CPT/HCPCS: 80053; 82306; 82607; 82728; 82746; 83540; 83550; 84436; 84443; 84466; 84481 ==

== ENCOUNTER → 2022-05-20 12:40 | Outpatient (BNVA) | payer MEDICARE, OTHER, SELFPAY | PROVIDERS: PCP Family Medicine; Visit Provider Physician Assistant | DX: Z98.1 Arthrodesis status (principal) | CPT/HCPCS: 72040; 99024 ==

== ENCOUNTER → 2022-07-20 09:11 | Outpatient (BNVA) | payer MEDICARE, OTHER, SELFPAY | PROVIDERS: PCP Family Medicine; Visit Provider Family Medicine | DX: E55.9 Vitamin D deficiency, unspecified (principal); E03.9 Hypothyroidism, unspecified; I95.1 Orthostatic hypotension; R42 Dizziness and giddiness; D64.9 Anemia, unspecified; I49.1 Atrial premature depolarization | CPT/HCPCS: 80053; 82306; 82728; 83540; 84443; 85025 ==

== ENCOUNTER → 2022-08-19 12:48 | Outpatient (BNVA) | payer MEDICARE, OTHER, SELFPAY | PROVIDERS: PCP Family Medicine; Visit Provider Orthopaedic Surgery | DX: Z98.890 Other specified postprocedural states (principal); Z98.1 Arthrodesis status | CPT/HCPCS: 72040; 99213 ==

== ENCOUNTER → 2022-09-14 14:33 | Outpatient (BNVA) | payer MEDICARE, OTHER, SELFPAY | PROVIDERS: PCP Family Medicine; Referring Provider Family Medicine; Visit Provider Dermatology | DX: L28.0 Lichen simplex chronicus (principal); L57.0 Actinic keratosis; L81.4 Other melanin hyperpigmentation; L82.1 Other seborrheic keratosis; D22.39 Melanocytic nevi of other parts of face | CPT/HCPCS: 11102; 17000; 17003; 99203 ==

== ENCOUNTER → 2023-02-21 10:29 | Outpatient (BNVA) | payer MEDICARE, OTHER, SELFPAY | PROVIDERS: PCP Family Medicine; Visit Provider Family Medicine | DX: E55.9 Vitamin D deficiency, unspecified (principal); D64.9 Anemia, unspecified; E03.9 Hypothyroidism, unspecified; Z00.00 Encounter for general adult medical examination without abnormal findings; I49.1 Atrial premature depolarization; Z13.6 Encounter for screening for cardiovascular disorders | CPT/HCPCS: 80053; 80061; 82652; 82728; 83540; 84443; 84466; 85025 ==

== ENCOUNTER 2023-03-15 13:40 | Outpatient (CLI) | payer MEDICARE, OTHER, SELFPAY ==
--- NOTE | 2023-03-15 14:00 | XR_ITS ---
WS: [id number] SCREENING DEXA SCAN [facility] CLINICAL INFORMATION: screening for osteoporosis COMPARISON: None. FINDINGS: The L1-L4 bone mineral density measures 1.217 g/cm2. This corresponds to a T score score of 0.3 and Z score of 1.7. Left femoral neck bone mineral density measures 0.783 g/cm2. This corresponds to a T score of -1.8 an d Z score of -0.5. Right femoral neck bone mineral density measures 0.847 g/cm2. This corresponds to a T score -1.3of an d Z score of 0.0. Mean femoral neck bone mineral density measures 0.815 g/cm2. This corresponds to a T score of -1.5 an d Z score of -0.3. IMPRESSION: Normal bone mineralization lumbar spine. Osteopenia femoral necks. Patient's FRAX calculated 10 year probability for major osteoporotic fracture is 15.2% and osteoporot ic hip fracture is 5.5%.
== END 2023-03-15 13:41 | disposition home or self-care (01) ==
PROVIDERS: PCP Family Medicine; Visit Provider Family Medicine
DX: Z13.820 Encounter for screening for osteoporosis (principal); M81.0 Age-related osteoporosis without current pathological fracture
CPT/HCPCS: 77080

== ENCOUNTER → 2024-02-23 12:27 | Outpatient (BNVA) | payer MEDICARE, OTHER, SELFPAY | PROVIDERS: PCP Family Medicine; Visit Provider Family Medicine | DX: Z00.00 Encounter for general adult medical examination without abnormal findings (principal); D64.9 Anemia, unspecified; E03.9 Hypothyroidism, unspecified; E55.9 Vitamin D deficiency, unspecified | CPT/HCPCS: 80053; 80061; 82607; 82652; 82728; 83540; 84443; 85025 ==